=== PATIENT | female | born 1980 | race Asian ===

== ENCOUNTER → 2022-01-08 | Outpatient (CLI) | payer OTHER ==
[2022-01-10 21:07] LABS: ANA (HEP2) Negative (.); SSA SJOGRENS A 0.3 AI (0.0-0.9); SSB SJOGRENS B 3.5 AI (0.0-0.9)
== END ==
LOC: M RAD 16:40
PROVIDERS: ATTEND Internal Medicine
DX: M25.541 Pain in joints of right hand (principal); M25.542 Pain in joints of left hand; R76.8 Other specified abnormal immunological findings in serum

== ENCOUNTER → 2023-01-08 | Outpatient (CLI) | payer OTHER | LOC: M WHC 13:35 | PROVIDERS: ATTEND Pediatrics | DX: N64.4 Mastodynia (principal) | CPT/HCPCS: 76642; 77066; G0279 ==

== ENCOUNTER → 2023-01-21 | Outpatient (CLI) | payer OTHER ==
[~2023-01-21] MED LIST: LIDOCAINE 1% MDV 20ML VIAL As Ordered ONE
[2023-01-21 13:10] VITALS: BP 131/84; TEMP 97.9; O2SAT 100
== END ==
LOC: M IRPRO 12:28
PROVIDERS: ATTEND Pediatrics
DX: N63.22 Unspecified lump in the left breast, upper inner quadrant (principal)